=== PATIENT | female | born 1980 ===

== ENCOUNTER 2021-05-25 07:27 | Inpatient (IN) | payer BC ==
[2021-05-25] MEDS ORDERED: Methylergonovine 0.2 MG/1 ML Amp IM PRN (07:46)
[2021-05-25] MEDS ORDERED: Butorphanol 1 MG/ML SDV IVPUSH PRN (07:46)
[2021-05-25] MEDS ORDERED: Lidocaine 1% 50 ML MDV INJECT PRN (07:46)
[2021-05-25] MEDS ORDERED: Nalbuphine 10 MG/1 ML Vial IVPUSH PRN (07:46)
[2021-05-25] MEDS ORDERED: Sodium Chloride 0.9% 10 ML Syringe FLUSH PRN (07:46)
[2021-05-25] MEDS ORDERED: Tranexamic Acid 1,000 MG in Sodium Chloride 0.9% 100 ML IV PRN (07:46)
[2021-05-25] MEDS ORDERED: Sodium Chloride 0.9% 10 ML SDV IV PRN (07:46)
[2021-05-25] MEDS ORDERED: Misoprostol 200 MCG Tab PO PRN (07:46)
[2021-05-25] MEDS ORDERED: Sodium Chloride 0.9% 2.5 ML Syringe FLUSH PRN (07:46)
[2021-05-25] MEDS ORDERED: Carboprost Tromethamine 250 MCG/1 ML Amp IM PRN (07:46)
[2021-05-25] MEDS ORDERED: Ondansetron 4 MG/2 ML SDV IVPUSH PRN (07:46)
[2021-05-25] MEDS ORDERED: Water For Irrigation,Sterile 1,000 ML Container IRR PRN (07:46)
[2021-05-25] MEDS ORDERED: Oxytocin/0.9 % Sodium Chloride 30 UNIT/500 ML BAG IV SCH (08:00)
[2021-05-25] MEDS ORDERED: Lactated Ringers 1,000 ML IV SCH (08:00)
[2021-05-25] MEDS ORDERED: Lanolin 100% Cream 7 GM Tube TOP PRN (10:05)
[2021-05-25] MEDS ORDERED: Witch Hazel Medicated Pads 40/Jar TOP PRN (10:05)
[2021-05-25] MEDS ORDERED: Ibuprofen 800 MG Tab PO PRN (10:05)
[2021-05-25] MEDS ORDERED: Benzocaine/Menthol 20%-0.5% Spray 78 GM Cannister TOP PRN (10:05)
[2021-05-25] MEDS ORDERED: Acetaminophen 500 MG Tab PO PRN (10:05)
[2021-05-25] MEDS ORDERED: oxyCODONE 5 MG Tab PO PRN (10:05)
[2021-05-25] MEDS ORDERED: Bisacodyl 10 MG Supp RECTAL PRN (10:05)
[2021-05-25] MEDS ORDERED: Docusate Sodium 100 MG Cap PO PRN (10:05)
--- NOTE | 2021-05-25 10:13 | PCM.DEL ---
<DajuanDede - Last Filed: 05/25/21 10:05> L & D Note - General Info Date of Service: 05/25/21 Mother's Due Date: 06/10/21 - Delivery Note Labor: Spontaneous Delivery Outcome: Livebirth Delivery Method: Spontaneous Vaginal Delivery-Single Infant Delivery Mode: Vacuum Extraction Presentation: Left Occiput Anterior (MERCED) Nuchal Cord: None (cord prolapse) Anesthesia Type: None Amniotic Fluid Description: Clear (terminal meconium) Episiotomy Type: None Laceration: None Placenta: Intact, Spontaneous Cord: 3 Vessels Estimated Blood Loss: 300 Resuscitation Needed: Yes : Suctioned, Bulb Syringe, Cathether, Stimulated, Warmed, Moro Used, Warmer Used Provider: Iona Linn Score 1 min: 4 Score 5 min: 5 Score 10 min: 8 Second Stage Interventions: Reports: Second Nurse Assessed Progress of Descent, Second Nurse Reviewed Contraction Pattern, Second Nurse Reviewed Heart Tones, Encouragement Given, Pushing, McRobert's Position, Pushing, Stirrups/Leg Supports Delivery Comments (Free Text/Narrative):: Live male, apgars 4/5/8 at 1/5/10 minutes, weight 3700g, time of 0935 - General Info Date of Service: 05/25/21 - Patient Data Weight - Most Recent: 73.936 kg Lab Results Last 24 Hours: Laboratory Results - last 24 hr 05/25/21 05/25/21 Range/Units 08:34 08:34 WBC 9.13 (4.0-11.0) K/uL RBC 4.03 L (4.30-5.90) M/uL Hgb 12.5 (12.0-16.0) g/dL Hct 36.3 (36.0-46.0) % MCV 90.1 (80.0-98.0) fL MCH 31.0 (27.0-32.0) pg MCHC 34.4 (31.0-37.0) g/dL RDW Std Deviation 47.7 (28.0-62.0) fl RDW Coeff of Marcelle 14 (11.0-15.0) % Plt Count 167 (150-400) K/uL MPV 10.40 (7.40-12.00) fL Nucleated RBC % 0.0 /100WBC Nucleated RBCs # 0 K/uL Blood Type A POSITIVE Antibody Screen NEGATIVE Med Orders - Current: Current Medications Butorphanol Tartrate (Butorphanol 1 Mg/Ml Sdv) 1 mg IVPUSH Q1H PRN PRN Reason: Pain (severe 7-10) Carboprost Tromethamine (Carboprost Tromethamine 250 Mcg/1 Ml Amp) 250 mcg IM ASDIRECTED PRN PRN Reason: Post Hemorrhage Oxytocin/Sodium Chloride (Oxytocin 30 Unit/500 Ml-Ns) 30 unit in 500 mls @ 999 mls/hr IV TITRATE [facility] Last Infusion: 05/25/21 09:54 Dose: 250 mls/hr Documented by: Tranexamic Acid 1,000 mg/ (Sodium Chloride) 110 mls @ 660 mls/hr IV ONETIME PRN PRN Reason: Bleeding Lactated Ringer's (Ringers, Lactated) 1,000 mls @ 150 mls/hr IV ASDIRECTED [facility] Last Admin: 05/25/21 08:36 Dose: 999 mls/hr Documented by: Lidocaine HCl (Lidocaine 1% 50 Ml Mdv) 50 ml INJECT ONETIME PRN PRN Reason: Laceration repair Methylergonovine Maleate (Methylergonovine 0.2 Mg/1 Ml Amp) 0.2 mg IM ASDIRECTED PRN PRN Reason: Post Hemorrhage Misoprostol (Misoprostol 200 Mcg Tab) 200 mcg PO ONETIME PRN PRN Reason: Post Hemorrhage Nalbuphine HCl (Nalbuphine 10 Mg/1 Ml Vial) 10 mg IVPUSH Q1H PRN PRN Reason: Pain (severe 7-10) Ondansetron HCl (Ondansetron 4 Mg/2 Ml Sdv) 4 mg IVPUSH Q6H PRN PRN Reason: Nausea/Vomiting Sodium Chloride (Sodium Chloride 0.9% 10 Ml Syringe) 10 ml FLUSH ASDIRECTED PRN PRN Reason: Keep Vein Open Sodium Chloride (Sodium Chloride 0.9% 2.5 Ml Syringe) 2.5 ml FLUSH ASDIRECTED PRN PRN Reason: Keep Vein Open Sodium Chloride (Sodium Chloride 0.9% 10 Ml Sdv) 10 ml IV ASDIRECTED PRN PRN Reason: IV Use Sterile Water (Water For Irrigation,Sterile 1,000 Ml Container) 1,000 ml IRR ASDIRECTED PRN PRN Reason: delivery - Problem List & Annotations (1) Vaginal delivery SNOMED Code(s): 906450553 Code(s): O80 - ENCOUNTER FOR FULL-TERM UNCOMPLICATED DELIVERY Status: Acute Current Visit: Yes - Problem List Review Problem List Initiated/Reviewed/Updated: Yes - Assessment Assessment:: Pt is a 40yo G4 now P3013 F at 37w5d gestation s/p operative vaginal delivery complicated by umbilical cord prolapse - Plan Plan:: Routine post cares GBS negative, Rh +, Rubella immune Hep B negative PO pain medication PRN Regular diet as tolerated nursing assistance PRN Dispo: admit to , anticipate d/c 24-48 hours after delivery <Alejandra Armijo - Last Filed: 05/25/21 10:35> Vacuum Extractor Progress Note - Alternative Labor Strategies Considered Alternative Labor Strategies Considered:: Reports: Yes Indications Considered:: Reports: Yes Indications:: Reports: Suspicion of Immediate or Potential Compromise Time Out:: Reports: No Comments:: Cord prolapse - Patient Prepared Patient Prepared:: Reports: Yes Informed Consent:: Reports: Yes Risks: Reports: Yes Risks Include:: Reports: Laceration, Maternal Injury, Other ( hemorrhage) Anesthesia/Analgesia Adequate:: Reports: No - Probability of Success High Probability of Success:: Reports: Yes Weight Estimated:: Reports: AGA Patient Diabetic:: Reports: No Pelvis Adequate:: Reports: Yes Asynclitic:: Reports: No Station:: +2 - Application Time Maximum Application Time & Number of Pop-Offs Predetermined:: Reports: Yes Total Application Time (min): *max=20min: 3 Type of Vacuum Used:: Reports: Low profile Vacuum Extraction: Successful - Exit Strategy Exit strategy available:: Reports: Yes and resuscitation teams readily available:: Reports: Yes Comments:: 2 pop-offs - Patient Data Lab Results Last 24 Hours: Laboratory Results - last 24 hr 05/25/21 05/25/21 05/25/21 Range/Units 08:34 08:34 08:40 WBC 9.13 (4.0-11.0) K/uL RBC 4.03 L (4.30-5.90) M/uL Hgb 12.5 (12.0-16.0) g/dL Hct 36.3 (36.0-46.0) % MCV 90.1 (80.0-98.0) fL MCH 31.0 (27.0-32.0) pg MCHC 34.4 (31.0-37.0) g/dL RDW Std Deviation 47.7 (28.0-62.0) fl RDW Coeff of Marcelle 14 (11.0-15.0) % Plt Count 167 (150-400) K/uL MPV 10.40 (7.40-12.00) fL Nucleated RBC % 0.0 /100WBC Nucleated RBCs # 0 K/uL SARS-CoV-2 RNA (HUI) NEGATIVE (NEGATIVE) Blood Type A POSITIVE Antibody Screen NEGATIVE Med Orders - Current: Current Medications Acetaminophen (Acetaminophen 500 Mg Tab) 1,000 mg PO Q6H PRN PRN Reason: Pain (mild 1-3) Benzocaine/Menthol (Benzocaine/Menthol 20%-0.5% [place] 78 Gm Cannister) 78 gm TOP ASDIRECTED PRN PRN Reason: Perineal Comfort Measure Bisacodyl (Bisacodyl 10 Mg Supp) 10 mg RECTAL ONETIME PRN PRN Reason: Constipation Butorphanol Tartrate (Butorphanol 1 Mg/Ml Sdv) 1 mg IVPUSH Q1H PRN PRN Reason: Pain (severe 7-10) Carboprost Tromethamine (Carboprost Tromethamine 250 Mcg/1 Ml Amp) 250 mcg IM ASDIRECTED PRN PRN Reason: Post Hemorrhage Docusate Sodium (Docusate Sodium 100 Mg Cap) 100 mg PO Q12H PRN PRN Reason: Constipation Emollient Ointment (Lanolin 100% Cream 7 Gm Tube) 0 gm TOP ASDIRECTED PRN PRN Reason: Sore Nipples Oxytocin/Sodium Chloride (Oxytocin 30 Unit/500 Ml-Ns) 30 unit in 500 mls @ 999 mls/hr IV TITRATE [facility] Last Infusion: 05/25/21 09:54 Dose: 250 mls/hr Documented by: Tranexamic Acid 1,000 mg/ (Sodium Chloride) 110 mls @ 660 mls/hr IV ONETIME PRN PRN Reason: Bleeding Lactated Ringer's (Ringers, Lactated) 1,000 mls @ 150 mls/hr IV ASDIRECTED [facility] Last Admin: 05/25/21 08:36 Dose: 999 mls/hr Documented by: Ibuprofen (Ibuprofen 800 Mg Tab) 800 mg PO Q8H PRN PRN Reason: Pain (mild 1-3) Lidocaine HCl (Lidocaine 1% 50 Ml Mdv) 50 ml INJECT ONETIME PRN PRN Reason: Laceration repair Methylergonovine Maleate (Methylergonovine 0.2 Mg/1 Ml Amp) 0.2 mg IM ASDIRECTED PRN PRN Reason: Post Hemorrhage Misoprostol (Misoprostol 200 Mcg Tab) 200 mcg PO ONETIME PRN PRN Reason: Post Hemorrhage Nalbuphine HCl (Nalbuphine 10 Mg/1 Ml Vial) 10 mg IVPUSH Q1H PRN PRN Reason: Pain (severe 7-10) Ondansetron HCl (Ondansetron 4 Mg/2 Ml Sdv) 4 mg IVPUSH Q6H PRN PRN Reason: Nausea/Vomiting Oxycodone HCl (Oxycodone 5 Mg Tab) 5 mg PO Q2H PRN PRN Reason: Pain (severe 7-10) Sertraline HCl (Sertraline 100 Mg Tab) 100 mg PO DAILY FABIOLA Sodium Chloride (Sodium Chloride 0.9% 10 Ml Syringe) 10 ml FLUSH ASDIRECTED PRN PRN Reason: Keep Vein Open Sodium Chloride (Sodium Chloride 0.9% 2.5 Ml Syringe) 2.5 ml FLUSH ASDIRECTED PRN PRN Reason: Keep Vein Open Sodium Chloride (Sodium Chloride 0.9% 10 Ml Sdv) 10 ml IV ASDIRECTED PRN PRN Reason: IV Use Sterile Water (Water For Irrigation,Sterile 1,000 Ml Container) 1,000 ml IRR ASDIRECTED PRN PRN Reason: delivery Witch Nora (Witch Nora Medicated Pads 40/Jar) 1 pad TOP ASDIRECTED PRN PRN Reason: comfort care - Problem List & Annotations (1) Vacuum-assisted vaginal delivery SNOMED Code(s): 52256956288571202 Code(s): Z37.9 - OUTCOME OF DELIVERY, UNSPECIFIED Status: Acute Current Visit: Yes (2) Advanced maternal age (AMA), 40 years or greater SNOMED Code(s): 343661839 Code(s): GDH7576 - Status: Acute Current Visit: Yes - My Orders Last 24 Hours: My Active Orders 05/25/21 07:46 Patient Status [ADT] Routine Heart Tones [RC] CONTINUOUS Non Stress Test [RC] PER UNIT ROUTINE May Shower [RC] ASDIRECTED Notify Provider [RC] PRN Peripheral IV Care [RC] PRN Up ad Pricila [RC] ASDIRECTED Vaginal Exam [RC] PRN Vital Signs [RC] PER UNIT ROUTINE Butorphanol [Stadol] 1 mg IVPUSH Q1H PRN Carboprost Tromethamine [Hemabate DS] 250 mcg IM ASDIRECTED PRN Lidocaine 1% [Xylocaine 1%] 50 ml INJECT ONETIME PRN Methylergonovine [Methergine] 0.2 mg IM ASDIRECTED PRN Nalbuphine [Nubain] 10 mg IVPUSH Q1H PRN Ondansetron [Zofran] 4 mg IVPUSH Q6H PRN Sodium Chloride 0.9% [Normal Saline] 10 ml IV ASDIRECTED PRN Sodium Chloride 0.9% [Saline Flush] 10 ml FLUSH ASDIRECTED PRN Sodium Chloride 0.9% [Saline Flush] 2.5 ml FLUSH ASDIRECTED PRN Tranexamic Acid [Cyklokapron] 1,000 mg Sodium Chloride 0.9% [Normal Saline] 100 ml IV ONETIME Water For Irrigation,Sterile [Sterile Water for Irrigation] 1,000 ml IRR ASDIRECTED PRN miSOPROStoL [Cytotec] 200 mcg PO ONETIME PRN Scalp Electrode [WOMSER] Per Unit Routine Peripheral IV Insertion Adult [OM.PC] Routine Resuscitation Status Routine 05/25/21 08:00 Lactated Ringers [Ringers, Lactated] 1,000 ml IV ASDIRECTED Oxytocin/0.9 % Sodium Chloride [Oxytocin 30 Unit/500 ML-NS] 30 unit in 500 ml IV TITRATE 05/25/21 08:34 RPR (SYPHILIS SERO) W/ RFLX [REF] Routine 05/25/21 10:05 Notify Provider Vital Signs [RC] ASDIRECTED BLOOD GAS ARTERIAL UMBILICAL [BG] Stat BLOOD GAS VENOUS UMBILICAL [BG] Stat Acetaminophen [Tylenol Extra Strength] 1,000 mg PO Q6H PRN Benzocaine/Menthol [Dermoplast Pain Relief 20%-0.5% [place]] 78 gm TOP ASDIRECTED PRN Docusate Sodium [Colace] 100 mg PO Q12H PRN Ibuprofen [Motrin] 800 mg PO Q8H PRN Lanolin [Lansinoh HPA] See Dose Instructions TOP ASDIRECTED PRN bisacodyL [Dulcolax] 10 mg RECTAL ONETIME PRN oxyCODONE 5 mg PO Q2H PRN witch Nora [Tucks] 1 pad TOP ASDIRECTED PRN Breast Pump [WOMSER] Per Unit Routine 05/25/21 10:06 Patient Status [ADT] Routine May Shower [RC] ASDIRECTED Up ad Pricila [RC] ASDIRECTED Vital Signs [RC] PER UNIT ROUTINE Assess Lochia [WOMSER] Per Unit Routine Assess Uterine Involution [WOMSER] Per Unit Routine Peripheral IV Discontinue [OM.PC] Routine 05/25/21 10:07 Cooling Warming Measures [RC] ASDIRECTED Ice Therapy [OM.PC] Per Unit Routine Perineal Care [OM.PC] Per Unit Routine Sitz Bath [OM.PC] Per Unit Routine 05/25/21 Lunch Regular Diet [DIET] 05/26/21 05:11 HEMOGLOBIN/HEMATOCRIT,HH [HEME] Timed 05/26/21 09:00 Sertraline [Zoloft] 100 mg PO DAILY - Plan Plan:: I was present and performed vacuum-assisted vaginal delivery for bradycardia due to umbilical cord prolapse at complete cervical dilation. 2 pop- offs occurred, successful extraction on third pull with maternal pushing efforts. Cord immediately clamped and cut. Please see dictation #[id number] for further details.
--- NOTE | 2021-05-25 11:06 | OR ---
SURGEON: Alejandra Armijo MD DATE OF PROCEDURE: 05/25/2021 PREOPERATIVE DIAGNOSES: 1. A 40-year-old, G4, P 2-0-1-2, at 37 weeks and 5 days' gestation. 2. Labor. 3. Advanced maternal age. 4. Group B Streptococcus negative. POSTOPERATIVE DIAGNOSES: 1. A 40-year-old, G4, P 3-0-1-3, at 37 weeks and 5 days' gestation. 2. Cord prolapse at complete cervical dilation with non-reassuring heart tones. 3. Labor 4. Advanced maternal age. 5. Group B Streptococcus negative. PRIMARY SURGEON: Alejandra Armijo MD MONOMER PURIFICATION OPERATOR: Dede Graff, medical student. ANESTHESIA: None. PROCEDURE: Vacuum-assisted vaginal delivery. ESTIMATED BLOOD LOSS: 300 mL. FINDINGS: Live male , cephalic presentation. score 4, 5, and 8 at 1, 5, and 10 minutes respectively. Weight 3700g. Cord gases pending. Placenta intact and a 3-vessel cord. No perineal lacerations. INDICATIONS: This is a 40-year-old, G4, P 2-0-1-2, who presented at 37 weeks 5 days' gestation complaining of contractions. On presentation, her cervix was found to be 6 to 7 cm dilated, and she was montez every 2 to 3 minutes. She was admitted to Labor and Delivery for expectant management of active labor. She declined epidural for pain control. She progressed to 8 to 9 cm dilated and had spontaneous rupture of membranes with clear fluid noted. At this time, heart rate dropped into the 80s to 90s, and I was called to the room. DESCRIPTION OF PROCEDURE: I arrived to the room with the heart tones in the 80s to 90s. Upon evaluation, cervix was found to be 9 cm dilated with the head at 0 station. The patient began pushing due to the bradycardia. After 2 contractions of pushing efforts, it was noted that a cord prolapse had occurred. The umbilical cord was attempted to be reduced past the head, however, was unable to. Maternal pushing efforts were inadequate. At this time, the decision was made to proceed with a vacuum-assisted vaginal delivery as I felt I could safely deliver the fetus vaginally faster than via emergency . The landfill gas technician was called to the room. The operating room staff and Anesthesia were notified of possibility for emergency delivery necessity. The vacuum was placed, and with the next contraction, the vacuum was inflated and a gentle downward pressure was used to bring the infant's head to +2 station, and with maternal pushing efforts, the vacuum continued to be applied, and the 's head was delivered to +3 station. At this time, two pop-offs occurred. A third application of the vacuum occurred, and with maternal pushing efforts over the next contraction, the infant's head was able to be delivered. The vacuum was deflated and removed. The 's shoulders were delivered with maternal pushing efforts followed by the remainder of the body. Terminal meconium was noted. The 's cord was clamped and cut immediately and taken to the warmer for resuscitation by nursing staff and the landfill gas technician. Cord blood and cord gases were obtained. The placenta then delivered intact and a 3-vessel cord via the Nagy-Moctezuma maneuver. Fundus was firm below the umbilicus. Minimal bleeding. The perineum was inspected and no lacerations were noted. [id number] / MODL /[id number] [id number]
--- NOTE | 2021-05-25 12:39 | PCM.SN.2 ---
- Free Text/Narrative Note: Patient is doing well, mild cramping and lochia. Plan for baby to be transferred to [facility] due to possible seizure activity. Reviewed this with patient, along with Dr. Linn. Will plan to discharge patient home at time of baby transfer so that she can drive to [place]. Monitor BP and bleeding until discharge. Reviewed discharge precautions/instructions. All questions answered.
[2021-05-26] MEDS ORDERED: Sertraline 100 MG Tab PO SCH (09:00)
== END 2021-05-25 18:19 | disposition home or self-care (01) | DRG 560 ==
LOC: MW.OBCHECK 07:27 → MW.OB 07:28 → MW.OBCHECK 07:46 → OBSVTOIN 10:06
PROVIDERS: ADMIT Obstetrics & Gynecology; ATTEND Obstetrics & Gynecology
PROC: 10D07Z4 Extraction of Products of Conception, Mid Forceps, Via Natural or Artificial Opening (ICD-10-PCS; principal; 2021-05-25)
DX: O69.0XX0 Labor and delivery complicated by prolapse of cord, not applicable or unspecified (principal); Z37.0 Single live birth; O77.0 Labor and delivery complicated by meconium in amniotic fluid; O76 Abnormality in fetal heart rate and rhythm complicating labor and delivery; Z20.822 Contact with and (suspected) exposure to COVID-19; Z3A.37 37 weeks gestation of pregnancy
CPT/HCPCS: 59025; 59409; 82803; 85027; 86592; 86850; 86900; 86901; A9270-GY; J2590; J7120; U0002